=== PATIENT | female | born 1935 | race Caucasian/White ===

== ENCOUNTER 2022-02-20 10:57 | Inpatient (IN) | payer MEDICARE, BC, OTHER ==
[~2022-02-20] VITALS: Ht 157.5 cm; Wt 64.0 kg
[2022-02-20] MEDS ORDERED: ONDANSETRON HCL INJ 2MG/ML 2ML 2 MG/ML VIAL IV PRN ×2 (11:15→14:30)
[2022-02-20] MEDS ORDERED: SODIUM CHLORIDE 0.9% 1000ML 1,000 ML IV ONE (11:15)
[2022-02-20 11:34] LABS: BASOPHILS % 0.3 % (0.0-1.0); EOSINOPHILS % 0.3 % (0.0-6.0); HEMATOCRIT 37.2 % (34.2-44.1); HEMOGLOBIN 13.2 g/dL (12.0-16.0); LYMPHOCYTES # (AUTO) 0.8 (1.0-3.2); LYMPHOCYTES % 12.2 % (18.0-39.1); MEAN CORPUSCULAR HEMOGLOBIN 31.1 pg (28-32); MEAN CORPUSCULAR HGB CONC 35.5 g/dL (31-35); MEAN CORPUSCULAR VOLUME 87.5 fL (81-99); MONOCYTES # (AUTO) 0.7 (0.2-0.8); NEUTROPHILS % 76.6 % (38.7-80.0); PLATELET COUNT 254 x10e3/uL (140-360); RED BLOOD COUNT 4.25 x10e6/uL (3.6-5.1); RED CELL DISTRIBUTION WIDTH 11.5 % (11.7-14.4)
[2022-02-20] MEDS: KETOROLAC TROMETHAMINE 30 MG/ML VIAL IV PRN (11:49)
[2022-02-20 11:51] LABS: ALBUMIN 3.1 g/dL (3.5-5.0); ALBUMIN/GLOBULIN RATIO 0.8 (0.8-2.0); CALCIUM 8.1 mg/dL (8.4-10.2); CREATININE, SERUM 1.14 mg/dL (0.57-1.11)
[2022-02-20 12:10] LABS: CLARITY,URINE CLEAR (CLEAR); COLOR,URINE YELLOW (YELLOW); KETONES,URINE 2+ (NEGATIVE); LEUKOCYTE ESTERASE ,URINE NEGATIVE (NEGATIVE); NITRITE,URINE NEGATIVE (NEGATIVE); PROTEIN,URINE DIPSTICK TRACE (NEGATIVE); URINE UROBILINOGEN 1 mg/dL (0.2 - 1)
[2022-02-20 12:45] LABS: BACTERIA,URINE MODERATE /HPF; EPITHELIAL CELLS,URINE FEW /LPF; RBC,URINE 0-5 /HPF (0-5); TRANSITIONAL EPI CELLS,URINE RARE
[2022-02-20] MEDS ORDERED: Morphine 2mg Syringe 2 MG/ML SYR IV PRN (14:30)
[2022-02-20] MEDS: SODIUM CHLORIDE 0.9% 1000ML 1,000 ML IV SCH (15:30)
[2022-02-20] MEDS: METRONIDAZOLE 500MG/NS 100ML 100 ML IV SCH ×2 (17:30→22:13)
[2022-02-20 20:00] VITALS: BP 135/74
[2022-02-20] MEDS ORDERED: LOSARTAN POTASS25 MG PO (21:02)
[2022-02-20] MEDS ORDERED: BUMETANIDE1 MG PO (21:02)
[2022-02-20] MEDS ORDERED: METOPROLOL SUCC50 MG PO (21:02)
[2022-02-20] MEDS ORDERED: AMIODARONE HCL100 MG PO (21:02)
[2022-02-20] MEDS: ENOXAPARIN SOD INJ 60 MG/0.6 ML SYR SC SCH (22:13)
[2022-02-21] VITALS: BP 106/50
[2022-02-21 04:00] VITALS: BP 115/68
[2022-02-21] MEDS: METRONIDAZOLE 500MG/NS 100ML 100 ML IV SCH ×4 (05:09→20:58)
[2022-02-21] MEDS: LEVOTHYROXINE SODIUM 50 MCG TAB PO SCH (05:14)
[2022-02-21] MEDS: SODIUM CHLORIDE 0.9% 1000ML 1,000 ML IV SCH ×3 (05:14→20:57)
[2022-02-21 06:34] LABS: BASOPHILS % 0.6 % (0.0-1.0); EOSINOPHILS # (AUTO) 0.1 (0.0-0.4); EOSINOPHILS % 1.1 % (0.0-6.0); HEMOGLOBIN 12.4 g/dL (12.0-16.0); LYMPHOCYTES # (AUTO) 0.8 (1.0-3.2); MEAN CORPUSCULAR HEMOGLOBIN 30.8 pg (28-32); MEAN CORPUSCULAR HGB CONC 34.4 g/dL (31-35); MEAN CORPUSCULAR VOLUME 89.6 fL (81-99); MONOCYTES # (AUTO) 0.7 (0.2-0.8); MONOCYTES % 12.7 % (4.4-11.3); NEUTROPHILS # (AUTO) 3.7 (2.1-6.9); PLATELET COUNT 215 x10e3/uL (140-360); RED BLOOD COUNT 4.02 x10e6/uL (3.6-5.1); RED CELL DISTRIBUTION WIDTH 11.9 % (11.7-14.4)
[2022-02-21 07:05] LABS: ALBUMIN 2.6 g/dL (3.5-5.0); ALBUMIN/GLOBULIN RATIO 0.8 (0.8-2.0); ANION GAP 15.7 mmol/L (8-16); CALCIUM 7.5 mg/dL (8.4-10.2); CREATININE, SERUM 0.92 mg/dL (0.57-1.11)
[2022-02-21 07:13] LABS: POTASSIUM 2.7 mmol/L (3.5-5.1)
[2022-02-21 08:00] VITALS: BP 114/69
[2022-02-21] MEDS ORDERED: POTASSIUM CHLORIDE 20 MEQ TAB CR PO STA (08:04)
[2022-02-21 08:12] VITALS: BP 114/69
[2022-02-21] MEDS: LOSARTAN POTASSIUM 25 MG TAB PO SCH (08:47)
[2022-02-21] MEDS: ENOXAPARIN SOD INJ 60 MG/0.6 ML SYR SC SCH ×2 (08:47→20:58)
[2022-02-21] MEDS: AMLODIPINE BESYLATE 5 MG TAB PO SCH (08:48)
[2022-02-21] MEDS: METOPROLOL SUCCINATE 50 MG TAB XL PO SCH ×2 (08:49→16:58)
[2022-02-21 11:33] VITALS: BP 116/84
[2022-02-21] MEDS ORDERED: POTASSIUM CHLORIDE 20 MEQ TAB CR PO NR (12:40)
[2022-02-21 20:00] VITALS: BP 123/73
[2022-02-22] VITALS (7 sets, daily range): BP systolic 106–134; BP diastolic 66–83
[2022-02-22] MEDS: METRONIDAZOLE 500MG/NS 100ML 100 ML IV SCH ×4 (04:00→21:21)
[2022-02-22] MEDS: LEVOTHYROXINE SODIUM 50 MCG TAB PO SCH (05:09)
[2022-02-22] MEDS: SODIUM CHLORIDE 0.9% 1000ML 1,000 ML IV SCH ×2 (05:12→16:34)
[2022-02-22 05:41] LABS: BASOPHILS % 0.8 % (0.0-1.0); EOSINOPHILS # (AUTO) 0.1 (0.0-0.4); EOSINOPHILS % 2.3 % (0.0-6.0); HEMOGLOBIN 11.9 g/dL (12.0-16.0); LYMPHOCYTES # (AUTO) 0.9 (1.0-3.2); LYMPHOCYTES % 17.7 % (18.0-39.1); MEAN CORPUSCULAR HEMOGLOBIN 31.1 pg (28-32); MEAN CORPUSCULAR VOLUME 91.4 fL (81-99); MONOCYTES # (AUTO) 0.8 (0.2-0.8); MONOCYTES % 14.4 % (4.4-11.3); NEUTROPHILS # (AUTO) 3.4 (2.1-6.9); NEUTROPHILS % 63.8 % (38.7-80.0); PLATELET COUNT 247 x10e3/uL (140-360); RED BLOOD COUNT 3.83 x10e6/uL (3.6-5.1); RED CELL DISTRIBUTION WIDTH 12.6 % (11.7-14.4)
[2022-02-22 06:10] LABS: ALBUMIN 2.6 g/dL (3.5-5.0); ALBUMIN/GLOBULIN RATIO 0.9 (0.8-2.0); ANION GAP 12.6 mmol/L (8-16); CALCIUM 7.8 mg/dL (8.4-10.2); CREATININE, SERUM 0.81 mg/dL (0.57-1.11); POTASSIUM 3.6 mmol/L (3.5-5.1)
[2022-02-22] MEDS: METOPROLOL SUCCINATE 50 MG TAB XL PO SCH ×2 (08:30→16:34)
[2022-02-22] MEDS: LOSARTAN POTASSIUM 25 MG TAB PO SCH (08:30)
[2022-02-22] MEDS: AMLODIPINE BESYLATE 5 MG TAB PO SCH (08:31)
[2022-02-22] MEDS: ENOXAPARIN SOD INJ 60 MG/0.6 ML SYR SC SCH (08:31)
[2022-02-23] VITALS (9 sets, daily range): BP systolic 110–144; BP diastolic 71–93
[2022-02-23] MEDS: SODIUM CHLORIDE 0.9% 1000ML 1,000 ML IV SCH ×2 (02:30→13:09)
[2022-02-23] MEDS: METRONIDAZOLE 500MG/NS 100ML 100 ML IV SCH ×2 (03:35→08:46)
[2022-02-23] MEDS: LEVOTHYROXINE SODIUM 50 MCG TAB PO SCH (05:03)
[2022-02-23] MEDS: METOPROLOL SUCCINATE 50 MG TAB XL PO SCH ×2 (08:44→16:59)
[2022-02-23] MEDS ORDERED: ELIQUIS2.5 MG PO (08:53)
[2022-02-23] MEDS ORDERED: FENTANYL CITRATE/PF 100MCG/2 ML INJ ONE (09:49)
[2022-02-23] MEDS ORDERED: SUGAMMADEX SODIUM 200 MG/2 ML VIAL IV ONE (10:25)
[2022-02-23] MEDS ORDERED: PHENYLEPHRINE HCL 1% 10 MG/ML VIAL ONE (10:25)
[2022-02-23] MEDS ORDERED: PROPOFOL IV EMULSION 10 MG/ML 20 ML VIAL ONE (10:25)
[2022-02-23] MEDS ORDERED: POVIDONE IODINE 0.05% 0.05 % ML PO ONE (10:25)
[2022-02-23] MEDS ORDERED: ROCURONIUM BROMIDE 10 MG/ML 5ML VIAL IV ONE (10:25)
[2022-02-23] MEDS ORDERED: SEVOFLURANE INHAL SOLN 250 ML PEN BTL ONE (10:25)
[2022-02-23] MEDS ORDERED: ONDANSETRON HCL INJ 2MG/ML 2ML 2 MG/ML VIAL ONE (10:25)
[2022-02-23] MEDS ORDERED: LIDOCAINE HCL 2% LOCAL INJ 5 ML SDV VIAL INJ ONE (10:25)
[2022-02-23] MEDS ORDERED: BUPIVACAINE 0.25% 30ML SDV ONE (11:10)
[2022-02-23] MEDS ORDERED: ONDANSETRON HCL 4 MG ORAL DISINTEGRATING TAB PO PRN (11:15)
[2022-02-23] MEDS ORDERED: ONDANSETRON HCL INJ 2MG/ML 2ML 2 MG/ML VIAL IV PRN (12:30)
[2022-02-23] MEDS: AMLODIPINE BESYLATE 5 MG TAB PO SCH (13:10)
[2022-02-23] MEDS: LOSARTAN POTASSIUM 25 MG TAB PO SCH (13:10)
[2022-02-24] VITALS (7 sets, daily range): BP systolic 106–127; BP diastolic 64–99
[2022-02-24] MEDS: SODIUM CHLORIDE 0.9% 1000ML 1,000 ML IV SCH ×2 (01:50→16:41)
[2022-02-24] MEDS: LEVOTHYROXINE SODIUM 50 MCG TAB PO SCH (05:23)
[2022-02-24 05:51] LABS: BASOPHILS # (AUTO) 0.1 (0.0-0.1); BASOPHILS % 0.8 % (0.0-1.0); EOSINOPHILS # (AUTO) 0.1 (0.0-0.4); EOSINOPHILS % 1.7 % (0.0-6.0); HEMATOCRIT 35.3 % (34.2-44.1); HEMOGLOBIN 11.6 g/dL (12.0-16.0); LYMPHOCYTES # (AUTO) 0.9 (1.0-3.2); LYMPHOCYTES % 14.4 % (18.0-39.1); MEAN CORPUSCULAR HEMOGLOBIN 31.3 pg (28-32); MEAN CORPUSCULAR HGB CONC 32.9 g/dL (31-35); MEAN CORPUSCULAR VOLUME 95.1 fL (81-99); MONOCYTES # (AUTO) 0.7 (0.2-0.8); MONOCYTES % 11.3 % (4.4-11.3); NEUTROPHILS # (AUTO) 4.5 (2.1-6.9); NEUTROPHILS % 70.4 % (38.7-80.0); PLATELET COUNT 239 x10e3/uL (140-360); RED BLOOD COUNT 3.71 x10e6/uL (3.6-5.1); RED CELL DISTRIBUTION WIDTH 13.3 % (11.7-14.4)
[2022-02-24 06:17] LABS: ANION GAP 11.6 mmol/L (8-16); CALCIUM 8.2 mg/dL (8.4-10.2); CREATININE, SERUM 0.74 mg/dL (0.57-1.11); POTASSIUM 3.6 mmol/L (3.5-5.1)
[2022-02-24] MEDS: LOSARTAN POTASSIUM 25 MG TAB PO SCH (08:57)
[2022-02-24] MEDS: METOPROLOL SUCCINATE 50 MG TAB XL PO SCH ×2 (08:58→16:40)
[2022-02-24] MEDS: TAMSULOSIN HCL 0.4 MG CAP PO SCH (10:41)
[2022-02-24] MEDS: AMLODIPINE BESYLATE 5 MG TAB PO SCH (12:35)
[2022-02-24] MEDS ORDERED: ONDANSETRON HCL 4 MG ORAL DISINTEGRATING TAB PO PRN (15:30)
[2022-02-24] MEDS: KETOROLAC TROMETHAMINE 30 MG/ML VIAL IV PRN (16:45)
[2022-02-24] MEDS ORDERED: FUROSEMIDE INJ 10 MG/ML 2 ML VIAL IV ONE (20:15)
[2022-02-25] VITALS (7 sets, daily range): BP systolic 93–121; BP diastolic 61–82
[2022-02-25] MEDS: SODIUM CHLORIDE 0.9% 1000ML 1,000 ML IV SCH ×2 (02:05→17:50)
[2022-02-25] MEDS: LEVOTHYROXINE SODIUM 50 MCG TAB PO SCH (05:05)
[2022-02-25 05:58] LABS: BASOPHILS % 0.4 % (0.0-1.0); EOSINOPHILS # (AUTO) 0.2 (0.0-0.4); EOSINOPHILS % 3.6 % (0.0-6.0); HEMATOCRIT 32.7 % (34.2-44.1); HEMOGLOBIN 10.7 g/dL (12.0-16.0); LYMPHOCYTES # (AUTO) 1.1 (1.0-3.2); LYMPHOCYTES % 19.4 % (18.0-39.1); MEAN CORPUSCULAR HGB CONC 32.7 g/dL (31-35); MEAN CORPUSCULAR VOLUME 94.8 fL (81-99); MONOCYTES # (AUTO) 0.5 (0.2-0.8); MONOCYTES % 9.6 % (4.4-11.3); NEUTROPHILS # (AUTO) 3.6 (2.1-6.9); NEUTROPHILS % 65.7 % (38.7-80.0); PLATELET COUNT 209 x10e3/uL (140-360); RED BLOOD COUNT 3.45 x10e6/uL (3.6-5.1); RED CELL DISTRIBUTION WIDTH 13.5 % (11.7-14.4)
[2022-02-25 06:29] LABS: ALBUMIN 2.4 g/dL (3.5-5.0); ALBUMIN/GLOBULIN RATIO 0.9 (0.8-2.0); ANION GAP 10.6 mmol/L (8-16); CALCIUM 7.7 mg/dL (8.4-10.2); CREATININE, SERUM 0.99 mg/dL (0.57-1.11); POTASSIUM 3.6 mmol/L (3.5-5.1)
[2022-02-25] MEDS: TAMSULOSIN HCL 0.4 MG CAP PO SCH (08:59)
[2022-02-25] MEDS: AMIODARONE HCL 200 MG TAB PO SCH (08:59)
[2022-02-25] MEDS: LOSARTAN POTASSIUM 25 MG TAB PO SCH ×2 (09:00→09:03)
[2022-02-25] MEDS: AMLODIPINE BESYLATE 5 MG TAB PO SCH (09:02)
[2022-02-25] MEDS: METOPROLOL SUCCINATE 50 MG TAB XL PO SCH ×2 (09:02→17:20)
[2022-02-25] MEDS: APIXAB 2.5 MG TABLET PO SCH (11:48)
[2022-02-25] MEDS: HYDROCODONE/APAP 5MG-325MG TAB PO PRN (17:19)
[2022-02-25] MEDS ORDERED: FUROSEMIDE INJ 10 MG/ML 2 ML VIAL IV ONE (20:00)
[2022-02-26] MEDS: LEVOTHYROXINE SODIUM 50 MCG TAB PO SCH (05:50)
[2022-02-26] MEDS: SODIUM CHLORIDE 0.9% 1000ML 1,000 ML IV SCH (06:00)
[2022-02-26 06:07] LABS: BASOPHILS % 0.5 % (0.0-1.0); EOSINOPHILS # (AUTO) 0.2 (0.0-0.4); EOSINOPHILS % 2.9 % (0.0-6.0); HEMATOCRIT 33.3 % (34.2-44.1); LYMPHOCYTES # (AUTO) 0.8 (1.0-3.2); LYMPHOCYTES % 12.4 % (18.0-39.1); MEAN CORPUSCULAR HEMOGLOBIN 31.3 pg (28-32); MEAN CORPUSCULAR VOLUME 94.9 fL (81-99); MONOCYTES # (AUTO) 0.6 (0.2-0.8); MONOCYTES % 9.6 % (4.4-11.3); NEUTROPHILS # (AUTO) 4.8 (2.1-6.9); NEUTROPHILS % 73.4 % (38.7-80.0); PLATELET COUNT 234 x10e3/uL (140-360); RED BLOOD COUNT 3.51 x10e6/uL (3.6-5.1); RED CELL DISTRIBUTION WIDTH 13.2 % (11.7-14.4)
[2022-02-26 06:31] LABS: ANION GAP 9.6 mmol/L (8-16); CALCIUM 7.9 mg/dL (8.4-10.2); CREATININE, SERUM 0.87 mg/dL (0.57-1.11); POTASSIUM 3.6 mmol/L (3.5-5.1)
[2022-02-26 08:27] VITALS: BP 95/63
[2022-02-26] MEDS: APIXAB 2.5 MG TABLET PO SCH (08:54)
[2022-02-26] MEDS: AMLODIPINE BESYLATE 5 MG TAB PO SCH (08:55)
[2022-02-26] MEDS: LOSARTAN POTASSIUM 25 MG TAB PO SCH (08:56)
[2022-02-26] MEDS: METOPROLOL SUCCINATE 50 MG TAB XL PO SCH ×2 (08:57→17:54)
[2022-02-26] MEDS: AMIODARONE HCL 200 MG TAB PO SCH (08:58)
[2022-02-26] MEDS: TAMSULOSIN HCL 0.4 MG CAP PO SCH (08:58)
[2022-02-26 09:20] VITALS: BP 95/63
[2022-02-26 12:07] VITALS: BP 94/55
[2022-02-26 15:54] VITALS: BP 93/69
[2022-02-26 20:00] VITALS: BP 123/70
[2022-02-26 21:30] VITALS: BP 123/70
[2022-02-27] VITALS: BP 119/72
[2022-02-27 04:00] VITALS: BP 116/73
[2022-02-27] MEDS: LEVOTHYROXINE SODIUM 50 MCG TAB PO SCH (06:17)
[2022-02-27 07:54] VITALS: BP 108/69
[2022-02-27] MEDS: APIXAB 2.5 MG TABLET PO SCH (08:31)
[2022-02-27] MEDS: LOSARTAN POTASSIUM 25 MG TAB PO SCH (08:31)
[2022-02-27] MEDS: METOPROLOL SUCCINATE 50 MG TAB XL PO SCH ×2 (08:32→16:03)
[2022-02-27] MEDS: TAMSULOSIN HCL 0.4 MG CAP PO SCH (08:32)
[2022-02-27] MEDS: AMIODARONE HCL 200 MG TAB PO SCH (08:32)
[2022-02-27 10:27] VITALS: BP 108/69
[2022-02-27] MEDS: HYDROCODONE/APAP 5MG-325MG TAB PO PRN (10:30)
[2022-02-27] MEDS: AMLODIPINE BESYLATE 5 MG TAB PO SCH (11:48)
[2022-02-27 12:00] VITALS: BP 118/96
[2022-02-27 15:50] VITALS: BP 133/84
== END 2022-02-27 19:15 | DRG 417 ==
LOC: ER 11:02 → ERHOLD 14:29 → MED/SURG3 19:54
PROVIDERS: ADMIT Family Medicine; ATTEND Family Medicine
PROC: 0FT44ZZ Resection of Gallbladder, Percutaneous Endoscopic Approach (ICD-10-PCS; principal; 2022-02-23 11:06)
DX: K80.12 Calculus of gallbladder with acute and chronic cholecystitis without obstruction (principal); G92.8 Other toxic encephalopathy; E87.1 Hypo-osmolality and hyponatremia; M48.54XA Collapsed vertebra, not elsewhere classified, thoracic region, initial encounter for fracture; K82.8 Other specified diseases of gallbladder; I48.91 Unspecified atrial fibrillation; I12.9 Hypertensive chronic kidney disease with stage 1 through stage 4 chronic kidney disease, or unspecified chronic kidney disease; N18.30 Chronic kidney disease, stage 3 unspecified; Z87.440 Personal history of urinary (tract) infections; Z88.0 Allergy status to penicillin; Z20.822 Contact with and (suspected) exposure to COVID-19; E86.0 Dehydration; E03.9 Hypothyroidism, unspecified; Z91.018 Allergy to other foods; T41.205A Adverse effect of unspecified general anesthetics, initial encounter; Y92.230 Patient room in hospital as the place of occurrence of the external cause; M47.817 Spondylosis without myelopathy or radiculopathy, lumbosacral region; R33.9 Retention of urine, unspecified
CPT/HCPCS: 36415; 71045; 72110; 74176; 74181; 76705; 80048; 80053; 81001; 83735; 84484; 85025; 87086; 88304; 93005; 94799; 97139; 99251; 99284; C1766; J0696; J1650; J1885; J1940; J2001; J2370; J2405; J3010; J7030